=== PATIENT | male | born 1995 | race Caucasian/White ===

== ENCOUNTER 2017-04-29 06:03 | Emergency (ER) | payer BC, OTHER ==
[2017-04-29] MEDS ORDERED: Sodium Chloride 0.9% 1,000 ML IV ONE (06:18)
--- NOTE | 2017-04-29 06:18 | EDM.PDOC ---
ED HPI GENERAL MEDICAL PROBLEM - General Chief Complaint: Fever Stated Complaint: ILL, FEVER Time Seen by Provider: 04/29/17 06:16 - History of Present Illness INITIAL COMMENTS - FREE TEXT/NARRATIVE: HISTORY AND PHYSICAL: History of present illness: Patient 22-year-old male presents with concern of fever cough and nausea worse over last several days his MAXIMUM TEMPERATURE has been 101 he denies shortness of breath denies abdominal pain denies diarrhea Review of systems: As per history of present illness and below otherwise all systems reviewed and negative. Past medical history: As per history of present illness and as reviewed below otherwise noncontributory. Surgical history: As per history of present illness and as reviewed below otherwise noncontributory. Social history: No reported history of drug or alcohol abuse. Family history: As per history of present illness and as reviewed below otherwise noncontributory. Physical exam: HEENT: Atraumatic, normocephalic, pupils reactive, negative for conjunctival pallor or scleral icterus, mucous membranes dry, throat clear, neck supple, nontender, trachea midline. Lungs: Clear to auscultation, breath sounds equal bilaterally, chest nontender. Heart: S1S2, regular, negative for clicks, rubs, or JVD. Abdomen: Soft, nondistended, nontender. Negative for masses or hepatosplenomegaly. Negative for costovertebral tenderness. Pelvis: Stable nontender. Genitourinary: Deferred. Rectal: Deferred. Extremities: Atraumatic, negative for cords or calf pain. Neurovascular unremarkable. Neuro: Awake, alert, oriented. Cranial nerves II through XII unremarkable. Cerebellum unremarkable. Motor and sensory unremarkable throughout. Exam nonfocal. Diagnostics: CBC CMP chest x-ray Therapeutics: Normal saline 1 L bolus Zofran 4 mg IV Impression: #1 pneumonitis #2 history of fever Definitive disposition and diagnosis as appropriate pending reevaluation and review of above. - Related Data Allergies Allergy/AdvReac Type Severity Reaction Status Date / Time No Known Allergies Allergy Verified 04/29/17 06:12 Home Meds: Home Meds Methylphenidate HCl [Ritalin] 04/29/17 [History] ED ROS GENERAL - Review of Systems Review Of Systems: ROS reveals no pertinent complaints other than HPI. ED EXAM, GENERAL - Physical Exam Exam: See Below (See dictation) Departure - Departure Time of Disposition: 06:18 Disposition: Home, Self-Care 01 Condition: Good Clinical Impression: Pneumonitis, Dehydration - Discharge Information Referrals: PCP,None [Primary Care Provider] - Additional Instructions: The following information is given to patients seen in the emergency department who are being discharged to home. This information is to outline your options for follow-up care. We provide all patients seen in our emergency department with a follow-up referral. The need for follow-up, as well as the timing and circumstances, are variable depending upon the specifics of your emergency department visit. If you don't have a primary care physician on staff, we will provide you with a referral. We always advise you to contact your personal physician following an emergency department visit to inform them of the circumstance of the visit and for follow-up with them and/or the need for any referrals to a consulting specialist. The emergency department will also refer you to a specialist when appropriate. This referral assures that you have the opportunity for followup care with a specialist. All of these measure are taken in an effort to provide you with optimal care, which includes your followup. Under all circumstances we always encourage you to contact your private physician who remains a resource for coordinating your care. When calling for followup care, please make the office aware that this follow-up is from your recent emergency room visit. If for any reason you are refused follow-up, please contact the [facility] emergency department at and asked to speak to the emergency department charge nurse. Z-Jt Zofran as prescribed push fluids follow up primary medical doctor 1-2 days return as needed as discussed
[2017-04-29] MEDS ORDERED: Ondansetron 4 MG/2 ML SDV IVPUSH ONE (06:23)
[2017-04-29 06:51] VITALS: BP 121/65
[2017-04-29 07:03] LABS: CHLORIDE,CL 102 mmol/L (98-110); SODIUM,NA 136 mmol/L (136-146)
--- NOTE | 2017-04-29 08:38 | CR ---
EXAMINATION: Two-view chest (PA and Lateral views). HISTORY: Cough and fever. FINDINGS: The trachea is midline. The cardiomediastinal silhouette is within normal limits. Consolidation is no olivier within the lung bases predominantly within the right lower lobe. No pleural effusion or pneumotho rax. Osseous structures appear unremarkable. IMPRESSION: 1. Right basilar consolidation likely representing pneumonia.
== END 2017-04-29 07:45 | disposition home or self-care (01) ==
LOC: MW.ED 06:03
DX: J18.9 Pneumonia, unspecified organism (principal); E86.0 Dehydration
CPT/HCPCS: 36415; 71020; 80053; 85025; 96361; 96374; 99283; J2405; J7040; 99282